=== PATIENT | male | born 1980 | race Caucasian/White ===

== ENCOUNTER 2017-08-07 22:07 | Emergency (ER) | payer OTHER ==
[~2017-08-07] VITALS: Ht 165.1 cm; Wt 63.0 kg
[~2017-08-07 22:07] MED LIST: ACETAMINOPHEN-1 EAC1 PO; DOXYCYCLINE 10100 MG PO; ERYTHROMYCIN E3.5 G3 OPHTHALMIC; IBUPROFEN 800800 MG PO; PERMETHRIN60 GM TOP; PREDNISONE 20 M20 M1 PO; PROMETHAZINE-D120 ML PO; TRIAMCINOLONE A15 G1 TP
[2017-08-07] MEDS ORDERED: LIDOCAINE VISC100 ML SWISH&SPIT (22:25)
[2017-08-07] MEDS ORDERED: IBUPROFEN 600600 M1 PO (22:25)
[2017-08-07] MEDS ORDERED: TRAMADOL 50 MG50 MG PO (22:25)
[2017-08-07 22:52] VITALS: BP 128/67
== END 2017-08-07 22:52 | disposition home or self-care (01) ==
LOC: M.ERS 22:07
DX: K08.89 Other specified disorders of teeth and supporting structures (principal); F17.210 Nicotine dependence, cigarettes, uncomplicated; F10.99 Alcohol use, unspecified with unspecified alcohol-induced disorder; Z88.0 Allergy status to penicillin; Z88.8 Allergy status to other drugs, medicaments and biological substances

== ENCOUNTER 2019-09-03 22:09 | Emergency (ER) | payer OTHER ==
[~2019-09-03] VITALS: Ht 162.6 cm; Wt 64.4 kg
[~2019-09-03 22:09] MED LIST changes: +IBUPROFEN 600600 M1 PO; +LIDOCAINE VISC100 ML SWISH&SPIT; +TRAMADOL 50 MG50 MG PO
[2019-09-03 22:14] VITALS: BP 144/89
[2019-09-03] MEDS ORDERED: NORCO 5-325 TA1 EAC1 PO ×2 (22:42→22:44)
[2019-09-03] MEDS ORDERED: CLEOCIN HCL300 MG PO ×2 (22:42→22:44)
== END 2019-09-03 22:57 | disposition home or self-care (01) ==
LOC: M.ERS 22:09
DX: K02.9 Dental caries, unspecified (principal); F17.210 Nicotine dependence, cigarettes, uncomplicated; Z88.0 Allergy status to penicillin; Z88.8 Allergy status to other drugs, medicaments and biological substances

== ENCOUNTER 2019-11-28 21:01 | Emergency (ER) | payer OTHER ==
[~2019-11-28] VITALS: Ht 162.6 cm; Wt 63.5 kg
[~2019-11-28 21:01] MED LIST changes: +CLEOCIN HCL300 MG PO; +NORCO 5-325 TA1 EAC1 PO
[2019-11-28] MEDS ORDERED: TYLENOL WITH CO1 TA1 PO (22:06)
[2019-11-28 22:13] VITALS: BP 143/85
== END 2019-11-28 22:14 | disposition home or self-care (01) ==
LOC: M.ERS 21:01
DX: S80.11XA Contusion of right lower leg, initial encounter (principal); F17.210 Nicotine dependence, cigarettes, uncomplicated; Z88.0 Allergy status to penicillin; Z88.8 Allergy status to other drugs, medicaments and biological substances; W18.39XA Other fall on same level, initial encounter; Y93.89 Activity, other specified; Y92.89 Other specified places as the place of occurrence of the external cause; Y99.8 Other external cause status

== ENCOUNTER 2019-12-13 21:44 | Emergency (ER) | payer OTHER ==
[~2019-12-13] VITALS: Ht 165.1 cm; Wt 63.5 kg
[~2019-12-13 21:44] MED LIST changes: +TYLENOL WITH CO1 TA1 PO
[2019-12-13] MEDS ORDERED: KEFLEX500 M1 PO (22:18)
[2019-12-13] MEDS ORDERED: LORCET 5-325 M1 EACH PO (22:18)
[2019-12-13 22:20] VITALS: BP 174/115
== END 2019-12-13 22:20 | disposition home or self-care (01) ==
LOC: M.ERS 21:44
DX: K02.9 Dental caries, unspecified (principal); F17.210 Nicotine dependence, cigarettes, uncomplicated; Z88.0 Allergy status to penicillin; Z88.8 Allergy status to other drugs, medicaments and biological substances

== ENCOUNTER 2020-01-06 02:58 | Emergency (ER) | payer OTHER ==
[~2020-01-06] VITALS: Ht 165.1 cm; Wt 61.2 kg
[~2020-01-06 02:58] MED LIST changes: +KEFLEX500 M1 PO; +LORCET 5-325 M1 EACH PO
[2020-01-06 03:03] VITALS: BP 144/90
[2020-01-06] MEDS ORDERED: KEFLEX500 M1 PO (03:07)
[2020-01-06] MEDS ORDERED: TYLENOL WITH CO1 TA1 PO (03:08)
== END 2020-01-06 03:13 | disposition home or self-care (01) ==
LOC: M.ERS 02:58
DX: S02.5XXA Fracture of tooth (traumatic), initial encounter for closed fracture (principal); K02.9 Dental caries, unspecified; F17.210 Nicotine dependence, cigarettes, uncomplicated; F12.10 Cannabis abuse, uncomplicated; Z88.0 Allergy status to penicillin; Z88.8 Allergy status to other drugs, medicaments and biological substances; X58.XXXA Exposure to other specified factors, initial encounter; Y93.89 Activity, other specified; Y92.89 Other specified places as the place of occurrence of the external cause; Y99.8 Other external cause status

== ENCOUNTER 2020-02-11 03:24 | Emergency (ER) | payer OTHER ==
[~2020-02-11] VITALS: Ht 165.1 cm; Wt 62.6 kg
[2020-02-11] MEDS ORDERED: CLEOCIN HCL300 MG PO (03:58)
[2020-02-11 04:06] VITALS: BP 146/105
== END 2020-02-11 04:06 | disposition home or self-care (01) ==
LOC: M.ERS 03:24
DX: K08.139 Complete loss of teeth due to caries, unspecified class (principal); F17.210 Nicotine dependence, cigarettes, uncomplicated; Z88.0 Allergy status to penicillin; Z88.8 Allergy status to other drugs, medicaments and biological substances